=== PATIENT | female | born 2000 | race African-American/Black ===

== ENCOUNTER 2023-08-31 16:38 | Emergency (ER) | payer MEDICAID ==
[~2023-08-31] VITALS: Ht 180.3 cm; Wt 109.0 kg
[2023-08-31] MEDS: LORAZEPAM 2MG/ML INJ IM ONE (17:44)
[2023-08-31] MEDS: DIPHENHYDRAMINE 50MG/ML VIAL IM PRN (17:44)
[2023-08-31] MEDS: HALOPERIDOL LACTATE 5MG/ML VIAL IM ONE (17:44)
[2023-08-31 18:00] LABS: CLARITY URINE CLOUDY (CLEAR); COLOR URINE YELLOW (YELLOW); GLUCOSE URINE NEGATIVE (NEGATIVE); KETONES URINE 3+ (NEGATIVE); LEUKOCYTE ESTERASE URINE TRACE (NEGATIVE); NITRITE URINE NEGATIVE (NEGATIVE); OCCULT BLOOD URINE NEGATIVE (NEGATIVE); PROTEIN URINE NEGATIVE (NEGATIVE)
[2023-08-31 18:14] LABS: BACTERIA URINE 2+
[2023-08-31 18:15] LABS: RBC URINE 0-2 /hpf (0-2); SQUAMOUS EPITHELIAL CELL URINE 1+ /lpf (RARE/1+); WBC URINE 0-2 /hpf (0-2)
[2023-08-31 18:24] LABS: *AMPHETAMINES SCREEN URINE NEGATIVE (NEGATIVE); *BARBITURATES SCREEN URINE NEGATIVE (NEGATIVE); *BENZODIAZEPINES SCREEN URINE NEGATIVE (NEGATIVE); *COCAINE SCREEN URINE NEGATIVE (NEGATIVE); CANNABINOID URINE SCREEN NEGATIVE (NEGATIVE); ECSTASY MDMA SCREEN URINE NEGATIVE (NEGATIVE); METHADONE URINE SCREEN Neg (NEGATIVE); OPIATES URINE SCREEN NEGATIVE (NEGATIVE); PHENCYCLIDINE URINE SCREEN NEGATIVE (NEGATIVE)
[2023-08-31 18:42] LABS: BASOPHILS % 0.5 % (0.0-2.0); EOSINOPHILS % 2.7 % (0.0-5.0); HEMATOCRIT. 36.8 % (36.0-48.0); HEMOGLOBIN. 12.5 g/dL (12.0-16.0); LYMPHOCYTES % 16.1 % (20.0-50.0); MEAN CORPUSCULAR HEMOGLOBIN 30.1 pg (28.0-32.0); MEAN CORPUSCULAR VOLUME 88.6 fL (81.0-99.0); MONOCYTES % 8.9 % (2.0-8.0); NEUTROPHILS % 71.8 % (40.0-76.0); PLATELET 283 x1000/uL (130-400); RED BLOOD CELL COUNT 4.15 mill/uL (4.2-5.4); RED CELL DISTRIBUTION WIDTH 13.3 % (11.6-14.6); WHITE BLOOD COUNT 9.3 x1000/uL (4.5-11.0)
[2023-08-31 18:48] LABS: ACETAMINOPHEN < 2 ug/mL (10-30); ALANINE AMINOTRANSFERASE 15 IU/L (10-49); ALBUMIN 4.4 g/dL (3.2-4.8); ASPARTATE AMINOTRANSFERASE 21 IU/L (<34); CALCIUM 9.3 mg/dL (8.7-10.4); CARBON DIOXIDE 27 mEq/L (21-32); CHLORIDE 105 mEq/L (98-107); CREATININE 0.7 mg/dL (0.6-1.0); GLUCOSE 97 mg/dL (70-105); POTASSIUM 3.5 mEq/L (3.5-5.1); PROTEIN TOTAL 7.8 g/dL (6.0-8.3); SODIUM 137 mEq/L (136-145); UREA NITROGEN BLOOD 9 mg/dL (9-23)
[2023-08-31 18:49] LABS: HCG SCREEN NEGATIVE
[2023-08-31 18:59] LABS: ETHANOL BLOOD < 10 mg/dL (<10)
[2023-09-01] MEDS: QUETIAPINE FUMARATE 50MG TABLET PO SCH (14:09)
[2023-09-01] MEDS ORDERED: HALOPERIDOL LACTATE 5MG/ML VIAL IM ONE (14:15)
[2023-09-01] MEDS: DIPHENHYDRAMINE 50MG/ML VIAL IM ONE (14:29)
[2023-09-01] MEDS: LORAZEPAM 2MG/ML INJ IM ONE (14:29)
[2023-09-01 15:22] VITALS: O2SAT 99
[2023-09-02] MEDS: HALOPERIDOL LACTATE 5MG/ML VIAL IM ONE (14:17)
[2023-09-03] MEDS: LORAZEPAM 1MG TABLET PO ONE (20:00)
[2023-09-03] MEDS: QUETIAPINE FUMARATE 200MG TABLET PO SCH (21:47)
[2023-09-04] MEDS: IBUPROFEN 600MG TABLET PO ONE (12:38)
[2023-09-04] MEDS: LORAZEPAM 1MG TABLET PO ONE (18:53)
[2023-09-05] MEDS: IBUPROFEN 400MG TABLET PO NR (18:48)
[2023-09-05] MEDS: IBUPROFEN 800MG TABLET PO ONE (18:48)
[2023-09-05] MEDS: QUETIAPINE FUMARATE 50MG TABLET PO SCH (21:15)
[2023-09-06 10:25] VITALS: BP 102/58; PULSE 76; RESP 16; TEMP 98.4
== END 2023-09-06 10:29 | disposition home or self-care (01) ==
LOC: ER 16:45
DX: R45.851 Suicidal ideations (principal); I49.9 Cardiac arrhythmia, unspecified; J45.909 Unspecified asthma, uncomplicated; Z20.822 Contact with and (suspected) exposure to COVID-19; Z98.890 Other specified postprocedural states
CPT/HCPCS: 80053; 80305; 81003; 80307; 80329; 80320; 84703; 85025; 36415; 93005; 96372 ×3; 99291; 87426; J1200 ×2; J1630; J2060 ×2; Z7610 ×4; 99285; G0480